=== PATIENT | female | born 1990 | race Caucasian/White ===

== ENCOUNTER 2017-10-03 11:34 | Outpatient (CLI) | payer MEDICAID, OTHER ==
[~2017-10-03 11:34] MED LIST: HYT1T PO; ONDA8TAB6 PO
== END 2017-10-03 23:59 | disposition home or self-care (01) ==
LOC: LAB 11:34
PROVIDERS: ATTEND Obstetrics & Gynecology Obstetrics
DX: Z00.00 Encounter for general adult medical examination without abnormal findings (principal); O36.80X0 Pregnancy with inconclusive fetal viability, not applicable or unspecified; Z3A.00 Weeks of gestation of pregnancy not specified
CPT/HCPCS: 36415; 84702

== ENCOUNTER 2017-10-05 12:49 | Outpatient (CLI) | payer OTHER | END 2017-10-05 23:59 | disposition home or self-care (01) | LOC: LAB 12:49 | PROVIDERS: ATTEND Obstetrics & Gynecology Obstetrics | DX: O09.10 Supervision of pregnancy with history of ectopic pregnancy, unspecified trimester (principal); Z3A.00 Weeks of gestation of pregnancy not specified; Z87.891 Personal history of nicotine dependence | CPT/HCPCS: 36415; 84702 ==

== ENCOUNTER 2017-10-09 08:23 | Outpatient (CLI) | payer OTHER | END 2017-10-09 23:59 | disposition home or self-care (01) | LOC: LAB 08:23 | PROVIDERS: ATTEND Obstetrics & Gynecology Obstetrics | DX: O09.10 Supervision of pregnancy with history of ectopic pregnancy, unspecified trimester (principal); Z3A.00 Weeks of gestation of pregnancy not specified; Z87.891 Personal history of nicotine dependence | CPT/HCPCS: 36415; 84702 ==

== ENCOUNTER 2021-07-25 19:52 | Emergency (ER) | payer MEDICAID, OTHER ==
[~2021-07-25] VITALS: Ht 162.6 cm; Wt 56.8 kg
[2021-07-25 20:30] LABS: BASOPHILS % (AUTO) 0.4 % (0-1); EOSINOPHILS % (AUTO) 0.5 % (0-6); HEMATOCRIT 33.1 % (35.0-45.0); LYMPHOCYTES # (AUTO) 1.2 X10'3 (1.1-4.8); LYMPHOCYTES % (AUTO) 13.8 % (21-51); MEAN CORPUSCULAR HEMOGLOBIN 30.8 PG (27.0-31.0); MEAN CORPUSCULAR HGB CONC 33.1 g/dL (33.0-36.5); MEAN CORPUSCULAR VOLUME 93.1 FL (78-98); MEAN PLATELET VOLUME 8.8 FL (7.4-10.4); MONOCYTES % (AUTO) 11.4 % (2-12); NEUTROPHILS # (AUTO) 6.4 X10'3 (1.8-7.7); NEUTROPHILS % (AUTO) 73.9 % (42-75); PLATELET COUNT 304 X10'3 (140-440); RED BLOOD COUNT 3.56 X10'6 (4.20-5.60); RED CELL DISTRIBUTION WIDTH 16.8 % (11.5-14.5); WHITE BLOOD COUNT 8.7 X10'3 (4.5-11.0)
[2021-07-25 20:40] LABS: ALANINE AMINOTRANSFERASE 81 U/L (12-78); ALBUMIN 2.8 G/DL (3.4-5.0); ALBUMIN/GLOBULIN RATIO 0.7 (1.1-1.5); ALKALINE PHOSPHATASE 223 IU/L (46-116); ANION GAP 9 (8-16); ASPARTATE AMINO TRANSFERASE 165 U/L (10-37); BILIRUBIN,TOTAL 1.8 MG/DL (0.1-1.0); BLOOD UREA NITROGEN 3 MG/DL (7-18); BUN/CREATININE RATIO 6.4 (6.6-38.0); CALCIUM 8.2 MG/DL (8.5-10.1); CHLORIDE 97 MMOL/L (99-107); CREATININE 0.47 MG/DL (0.40-0.90); GLUCOSE 98 MG/DL (70-104); LIPASE 57 U/L (73-393); POTASSIUM 4.1 MMOL/L (3.5-5.1); SODIUM 129 MMOL/L (135-145); TOTAL CARBON DIOXIDE 22.8 MMOL/L (24-32); TOTAL PROTEIN 6.6 G/DL (6.4-8.2); eGFR > 90 ML/MIN
[2021-07-25 21:33] LABS: URINE HCG NEGATIVE (NEG)
[2021-07-25 21:42] LABS: CLARITY,URINE SLIGHTLY CLOUDY (Clear); GLUCOSE, URINE NEGATIVE (Neg); KETONES,URINE NEGATIVE (Neg); LEUKOCYTE ESTERASE ,URINE TRACE (Neg); NITRITES, URINE POSITIVE (Neg); OCCULT BLOOD,URINE NEGATIVE (Neg); PROTEIN,URINE NEGATIVE (Neg)
[2021-07-25 21:49] LABS: COLOR,URINE AMBER (Yellow); UA COLLECTION TYPE CLN CATCH MIDSTREAM
[2021-07-25 21:53] LABS: BACTERIA,URINE 4+ /HPF (Neg); MUCUS STRANDS NONE SEEN /LPF (Neg); RBC,URINE NONE SEEN /HPF (0-2); SQUAMOUS EPITHELIAL CELL,UR FEW /LPF (FEW); WBC,URINE 20-30 /HPF (0-4)
[2021-07-25] MEDS ORDERED: HYDROmorphone 1 mg/ml syringe IV ONE (22:20)
[2021-07-25] MEDS ORDERED: iohexol 300mg/ml 100ml inj. ONE (22:27)
[2021-07-25] MEDS ORDERED: HYDROmorphone 1 mg/ml syringe IM ONE (22:35)
[2021-07-26] MEDS ORDERED: ketorolac trometh. 30mg/ml inj. IV ONE
[2021-07-26] MEDS ORDERED: morphine 4 MG/ML inj SYRINge IV ONE (05:10)
--- NOTE | 2021-07-26 05:20 | NUR ---
pt. axox4, has been laying supine and on her phone. no distress noted. even and unlabored respirations. waiting on ct results.
--- NOTE | 2021-07-26 06:04 | NUR ---
switched to smaller cuff for more accurate reading of bp. bp with small adult cuff is 105/62.
[2021-07-26] MEDS ORDERED: CEPH250T PO (06:10)
[2021-07-26] MEDS ORDERED: cephalexin 250mg capsule PO ONE (06:10)
--- NOTE | 2021-07-26 06:30 | NUR ---
first contact with pt, found resting in bed. pt is awating CT results since 29. pt made aware that she is waiting for this, md and ct aware of delayed results. pt reports abd pain after pain meds. no distress.
--- NOTE | 2021-07-26 06:42 | NUR ---
called [facility] regarding CT results. informed that MD is currently reading CT and it should be resulted soon.
[2021-07-26 06:59] VITALS: BP 95/64
== END 2021-07-26 07:15 | disposition home or self-care (01) ==
LOC: ER 19:53
DX: N39.0 Urinary tract infection, site not specified (principal); R18.8 Other ascites; R10.84 Generalized abdominal pain; F41.9 Anxiety disorder, unspecified; Z88.5 Allergy status to narcotic agent; Z79.899 Other long term (current) drug therapy
CPT/HCPCS: 36415; 71045; 74177; 80053; 81001; 81025; 83690; 84484; 85025; 87077; 87088; 87186; 93005; 96372; 96374; 96375; 99285; J1170; J1885; J2270; J3490; Q9967

== ENCOUNTER 2021-07-27 12:49 | Outpatient (CLI) | payer MEDICAID ==
[~2021-07-27 12:49] MED LIST changes: +CEPH250T PO
[2021-07-27 14:51] LABS: ALANINE AMINOTRANSFERASE 74 U/L (12-78); ALBUMIN 2.9 G/DL (3.4-5.0); ALBUMIN/GLOBULIN RATIO 0.7 (1.1-1.5); ALKALINE PHOSPHATASE 228 IU/L (46-116); AMYLASE 26 U/L (25-115); ANION GAP 10 (8-16); ASPARTATE AMINO TRANSFERASE 162 U/L (10-37); BILIRUBIN,TOTAL 2.9 MG/DL (0.1-1.0); BLOOD UREA NITROGEN 5 MG/DL (7-18); C-REACTIVE PROTEIN 2.06 MG/DL (0.0-0.5); CALCIUM 8.6 MG/DL (8.5-10.1); CHLORIDE 98 MMOL/L (99-107); FERRITIN 87 NG/ML (8-252); GLUCOSE 80 MG/DL (70-104); LIPASE < 50 U/L (73-393); MAGNESIUM 1.9 MG/DL (1.5-2.4); POTASSIUM 4.4 MMOL/L (3.5-5.1); SODIUM 130 MMOL/L (135-145); eGFR > 90 ML/MIN
[2021-07-27 15:13] LABS: % IRON SATURATION 37 % (11-46); IRON 91 UG/DL (49-151); TOTAL IRON BINDING CAPACITY 249 UG/DL (259-388)
[2021-07-29 12:25] LABS: TRANSFERRIN 211 mg/dL (192-364)
[2021-07-29 12:26] LABS: GAMMA GLUTAMLY TRANSPEPTIDASE 952 IU/L (0-60)
[2021-07-29 17:41] LABS: HBSAG SCREEN Negative (Negative); HEP A AB, IGM Negative (Negative)
== END 2021-07-27 23:59 | disposition home or self-care (01) ==
LOC: LAB 12:49
PROVIDERS: ATTEND Family Medicine
DX: R17 Unspecified jaundice (principal); K21.9 Gastro-esophageal reflux disease without esophagitis; R79.89 Other specified abnormal findings of blood chemistry; E55.9 Vitamin D deficiency, unspecified; R60.0 Localized edema; F17.210 Nicotine dependence, cigarettes, uncomplicated; Z72.89 Other problems related to lifestyle
CPT/HCPCS: 36415; 80053; 80074; 82150; 82175; 82306; 82525; 82570; 82607; 82728; 82746; 82977; 83540; 83550; 83655; 83690; 83735; 83825; 84466; 86140

== ENCOUNTER 2021-07-27 20:43 | Emergency (ER) | payer MEDICAID ==
[~2021-07-27] VITALS: Ht 162.6 cm; Wt 60.7 kg
[2021-07-27] MEDS ORDERED: ondansetron/PF 4mg/2ml inj IV ONE (22:45)
[2021-07-27] MEDS ORDERED: LIDOcaine 1% W/epiNEPHrine 1:100,000 20ml vial SQ ONE (22:45)
[2021-07-27] MEDS ORDERED: morphine 4 MG/ML inj SYRINge IV PRN (22:45)
[2021-07-27] MEDS ORDERED: ketorolac trometh. 30mg/ml inj. IV ONE (23:25)
[2021-07-28 00:08] VITALS: BP 104/63
[2021-07-28 00:14] LABS: ALBUMIN,BODY FLUID 1.8 G/DL; LDH,BODY FLUID 96 U/L; TOTAL PROTEIN,BODY FLUID 3.6 G/DL
[2021-07-28 00:44] LABS: BFAPPEAR CLEAR; BFCOLOR YELLOW
[2021-07-28 00:45] LABS: BF RBC COUNT 425 /CU MM; BF WBC COUNT 385 /CU MM (0-1000); BFVOLUME 14 ML
[2021-07-28 00:47] LABS: BF MESOTHELIAL CELLS FEW; LYMPHOCYTES,BODY FLUID 60 %; MONOCYTES,BODY FLUID 30 %; NEUTROPHILS,BODY FLUID 10 %; OTHER CELLS,BODY FLUID MACROPHAGES
[2021-07-28 00:53] LABS: BODY FLUID PH (NON-PLEURAL) 7.5
[2021-07-28 01:03] LABS: ALANINE AMINOTRANSFERASE 74 U/L (12-78); ALBUMIN 3.1 G/DL (3.4-5.0); ALBUMIN/GLOBULIN RATIO 0.7 (1.1-1.5); ALKALINE PHOSPHATASE 240 IU/L (46-116); ANION GAP 10 (8-16); ASPARTATE AMINO TRANSFERASE 158 U/L (10-37); BILIRUBIN,TOTAL 2.3 MG/DL (0.1-1.0); BLOOD UREA NITROGEN 5 MG/DL (7-18); BUN/CREATININE RATIO 10.2 (6.6-38.0); CALCIUM 8.9 MG/DL (8.5-10.1); CHLORIDE 95 MMOL/L (99-107); CREATININE 0.49 MG/DL (0.40-0.90); GLUCOSE 67 MG/DL (70-104); POTASSIUM 4.7 MMOL/L (3.5-5.1); SODIUM 127 MMOL/L (135-145); TOTAL PROTEIN 7.4 G/DL (6.4-8.2); eGFR > 90 ML/MIN
[2021-07-28 01:05] LABS: CLARITY,URINE CLEAR (Clear); COLOR,URINE YELLOW (Yellow); GLUCOSE, URINE NEGATIVE (Neg); KETONES,URINE NEGATIVE (Neg); LEUKOCYTE ESTERASE ,URINE NEGATIVE (Neg); NITRITES, URINE NEGATIVE (Neg); OCCULT BLOOD,URINE NEGATIVE (Neg); PH,URINE 6.5 (4.8-8.0); PROTEIN,URINE NEGATIVE (Neg)
[2021-07-28 01:06] LABS: BASOPHILS # (AUTO) 0.1 X10'3 (0-0.2); BASOPHILS % (AUTO) 0.6 % (0-1); EOSINOPHILS # (AUTO) 0.1 X10'3 (0-0.9); EOSINOPHILS % (AUTO) 0.8 % (0-6); HEMOGLOBIN 12.1 g/dl (12.0-16.0); LYMPHOCYTES # (AUTO) 1.8 X10'3 (1.1-4.8); LYMPHOCYTES % (AUTO) 18.5 % (21-51); MEAN CORPUSCULAR HEMOGLOBIN 31.1 PG (27.0-31.0); MEAN CORPUSCULAR HGB CONC 32.8 g/dL (33.0-36.5); MEAN CORPUSCULAR VOLUME 94.9 FL (78-98); MEAN PLATELET VOLUME 9.1 FL (7.4-10.4); MONOCYTES # (AUTO) 0.9 X10'3 (0-0.9); MONOCYTES % (AUTO) 9.4 % (2-12); NEUTROPHILS % (AUTO) 70.7 % (42-75); PLATELET COUNT 370 X10'3 (140-440); RED CELL DISTRIBUTION WIDTH 16.6 % (11.5-14.5); WHITE BLOOD COUNT 9.9 X10'3 (4.5-11.0)
[2021-07-28 01:10] LABS: URINE HCG NEGATIVE (NEG)
[2021-07-28 01:24] LABS: UA COLLECTION TYPE CLN CATCH MIDSTREAM
== END 2021-07-28 00:09 | disposition home or self-care (01) ==
LOC: ER 20:43
DX: R10.84 Generalized abdominal pain (principal); R18.8 Other ascites; F12.90 Cannabis use, unspecified, uncomplicated; Z72.89 Other problems related to lifestyle; Z98.890 Other specified postprocedural states; Z90.49 Acquired absence of other specified parts of digestive tract; Z88.8 Allergy status to other drugs, medicaments and biological substances; Z79.2 Long term (current) use of antibiotics; Z79.899 Other long term (current) drug therapy
CPT/HCPCS: 36415; 49083; 80053; 81003; 81025; 82042; 83615; 83986; 84157; 85025; 89051; 96374; 96375; 99285; J1885; J2270; J2405; Z7610; 99284; A6449

== ENCOUNTER 2021-07-30 10:11 | Emergency (ER) | payer MEDICAID ==
[~2021-07-30] VITALS: Ht 162.6 cm; Wt 54.5 kg
[2021-07-30] MEDS ORDERED: albumin (Human) 5% 250ml 250 ML IV ONE (17:25)
[2021-07-30] MEDS ORDERED: ketorolac trometh. 30mg/ml inj. IV ONE (17:25)
[2021-07-30] MEDS: morphine 2 MG/ML inj. syringe IV PRN ×2 (18:12→21:56)
[2021-07-30 18:31] LABS: BASOPHILS # (AUTO) 0.1 X10'3 (0-0.2); EOSINOPHILS % (AUTO) 0.2 % (0-6); HEMATOCRIT 35.6 % (35.0-45.0); HEMOGLOBIN 11.9 g/dl (12.0-16.0); LYMPHOCYTES # (AUTO) 1.5 X10'3 (1.1-4.8); LYMPHOCYTES % (AUTO) 12.6 % (21-51); MEAN CORPUSCULAR HEMOGLOBIN 31.8 PG (27.0-31.0); MEAN CORPUSCULAR HGB CONC 33.4 g/dL (33.0-36.5); MEAN CORPUSCULAR VOLUME 95.2 FL (78-98); MEAN PLATELET VOLUME 8.6 FL (7.4-10.4); MONOCYTES % (AUTO) 8.2 % (2-12); NEUTROPHILS # (AUTO) 9.4 X10'3 (1.8-7.7); PLATELET COUNT 336 X10'3 (140-440); RED BLOOD COUNT 3.74 X10'6 (4.20-5.60); RED CELL DISTRIBUTION WIDTH 16.3 % (11.5-14.5)
[2021-07-30] MEDS ORDERED: LIDOcaine 1% W/epiNEPHrine 1:100,000 20ml vial SQ ONE ×2 (18:35→22:10)
[2021-07-30 18:41] LABS: ALANINE AMINOTRANSFERASE 58 U/L (12-78); ALBUMIN 2.6 G/DL (3.4-5.0); ALBUMIN/GLOBULIN RATIO 0.7 (1.1-1.5); ALKALINE PHOSPHATASE 195 IU/L (46-116); ANION GAP 11 (8-16); ASPARTATE AMINO TRANSFERASE 139 U/L (10-37); BILIRUBIN,TOTAL 2.1 MG/DL (0.1-1.0); BLOOD UREA NITROGEN 4 MG/DL (7-18); BUN/CREATININE RATIO 7.8 (6.6-38.0); CALCIUM 8.2 MG/DL (8.5-10.1); CHLORIDE 95 MMOL/L (99-107); CREATININE 0.51 MG/DL (0.40-0.90); GLUCOSE 97 MG/DL (70-104); SODIUM 130 MMOL/L (135-145); TOTAL CARBON DIOXIDE 24.3 MMOL/L (24-32); TOTAL PROTEIN 6.3 G/DL (6.4-8.2); eGFR > 90 ML/MIN
[2021-07-30 18:43] LABS: POTASSIUM 3.8 MMOL/L (3.5-5.1)
--- NOTE | 2021-07-30 19:32 | NUR ---
paracentesis in progress. nicola clemente at bedside
[2021-07-30] MEDS ORDERED: morphine 4 MG/ML inj SYRINge IV ONE (19:35)
[2021-07-30] MEDS ORDERED: LORazepam 2 mg/ml vial IV ONE (19:40)
--- NOTE | 2021-07-30 19:53 | NUR ---
FAILED PARACENTESIS ATTEMPT. MD WILL ATTEMPT AGAIN SHORTLY
--- NOTE | 2021-07-30 21:19 | NUR ---
STILL WAITING ON MARTA ORNELAS TO PERFORM SECOND PARACENTESIS ATTEMPT. PT IS RESTING COMFORTABLY IN BED.
--- NOTE | 2021-07-30 21:31 | NUR ---
MARTA ORNELAS AWARE OF PT LOW BP. 90/60. NO NEW ORDERS AT THIS TIME
--- NOTE | 2021-07-30 21:34 | NUR ---
SOLANGE TINAJERO [phone] Addendum: 07/30/21 at 2136 by ROSA RN SPOKE WITH TO GIVE UPDATE. PATIENT OKAYED UPDATE
--- NOTE | 2021-07-30 22:29 | NUR ---
LC ORNELAS AT BEDSIDE PERFORMING PARACENTESIS
--- NOTE | 2021-07-30 23:42 | NUR ---
AWARE OF 90/51 BP. NO NEW ORDERS AT THIS TIME
[2021-07-31 00:20] VITALS: BP 92/60
== END 2021-07-31 00:22 | disposition home or self-care (01) ==
LOC: ER 10:11
DX: R18.8 Other ascites (principal); K72.10 Chronic hepatic failure without coma; R10.84 Generalized abdominal pain; F41.9 Anxiety disorder, unspecified; F17.200 Nicotine dependence, unspecified, uncomplicated; F12.90 Cannabis use, unspecified, uncomplicated; Z72.89 Other problems related to lifestyle; Z88.5 Allergy status to narcotic agent; Z79.899 Other long term (current) drug therapy
CPT/HCPCS: 36415; 49083; 76705; 80053; 85025; 96365; 96375; 96376; 99285; J1885; J2060; J2270; J7030; P9045; Z7610

== ENCOUNTER 2021-08-09 09:42 | Emergency (ER) | payer MEDICAID ==
[~2021-08-09] VITALS: Ht 162.6 cm; Wt 57.3 kg
[~2021-08-09 09:42] MED LIST changes: -CEPH250T PO
[2021-08-09 09:45] VITALS: BP 107/66
== END 2021-08-09 11:10 | disposition home or self-care (01) ==
LOC: ER 09:43
DX: R10.84 Generalized abdominal pain (principal); F41.9 Anxiety disorder, unspecified; F12.90 Cannabis use, unspecified, uncomplicated; Z90.89 Acquired absence of other organs; Z79.899 Other long term (current) drug therapy; Z72.89 Other problems related to lifestyle; Z88.5 Allergy status to narcotic agent
CPT/HCPCS: 99282

== ENCOUNTER 2021-08-12 07:48 | Day surgery (SDC) | payer MEDICAID ==
[~2021-08-12] VITALS: Ht 162.6 cm; Wt 59.0 kg
[2021-08-12] MEDS ORDERED: LIDOcaine 1%/PF 5ML 10 MG/ML VIAL SQ ONE (07:55)
[2021-08-12 08:00] VITALS: BP 102/56
[2021-08-12] MEDS ORDERED: albumin 25% 100mL bottle x 1 IV PRN (08:05)
[2021-08-12] MEDS ORDERED: FURO40TA4 PO (08:22)
[2021-08-12] MEDS ORDERED: LACT10SO3 PO (08:22)
[2021-08-12] MEDS ORDERED: TRAM50TA2 PO (08:22)
[2021-08-12] MEDS ORDERED: ALPR1TAB2 PO (08:22)
[2021-08-12] MEDS ORDERED: HYDR4TAB45 PO (08:22)
[2021-08-12] MEDS ORDERED: SUMA50TA PO (08:22)
[2021-08-12] MEDS ORDERED: DEXL60CA3 PO (08:22)
[2021-08-12] MEDS ORDERED: MULT400T5 PO (08:22)
[2021-08-12] MEDS ORDERED: POLY17PO59 PO (08:22)
[2021-08-12] MEDS ORDERED: SPIR50TA5 PO (08:22)
[2021-08-12] MEDS ORDERED: ondansetron 4mg rapidly disintigrating tab PO ONE (09:55)
--- NOTE | 2021-08-12 10:00 | NUR ---
Patient very upset and anxious. She is asking for pain medication and nausea medication. She normally takes dilaudid at home and is requesting dilaudid or morphine. Spoke with Dr. Goldstein and he states he doesn't order narcotics but he did order Zofran 4mg ODT. Offered the patient Zofran and she refused and got upset because she says the reason she's nauseated is from the pain so Zofran "won't work". Patient starts crying and is very upset. I reassured patient and sat with her for a while to calm her down.
[2021-08-12 10:15] VITALS: BP 107/65
[2021-08-12 10:30] VITALS: BP 97/59
[2021-08-12 10:45] VITALS: BP 93/51
--- NOTE | 2021-08-12 10:45 | NUR ---
Patient feeling much better and getting some relief from the paracentesis. She is calmed down and less anxious. She stopped draining for a bit and I readjusted her but she still wasn't draining. About 5 mins later, she started draining again. Patient tolerating procedure well.
[2021-08-12 10:55] VITALS: BP_SYST 90; BP_SYST 93; BP_DIAS 51; BP_DIAS 52
[2021-08-12 11:10] VITALS: BP 97/51
== END 2021-08-12 11:21 | disposition home or self-care (01) ==
LOC: SSTAY O 07:48
PROVIDERS: ATTEND Radiology Vascular & Interventional Radiology
DX: R18.8 Other ascites (principal); I50.9 Heart failure, unspecified; Z88.6 Allergy status to analgesic agent; Z79.899 Other long term (current) drug therapy; Z98.890 Other specified postprocedural states
CPT/HCPCS: 49083; A6258; J3490; A6402

== ENCOUNTER 2021-09-01 06:39 | Day surgery (SDC) | payer MEDICAID ==
[~2021-09-01] VITALS: Ht 162.6 cm; Wt 63.5 kg
[~2021-09-01 06:39] MED LIST changes: +ALPR1TAB2 PO; +FURO20TA4 PO; +HYDR4TAB45 PO; -HYT1T PO; +LACT10SO7 PO; +MORP-92; +MULT400T5 PO; +ONDA4TAB12; -ONDA8TAB6 PO; +PANT40TA54 PO; +POTA10CA44 PO; +SPIR50TA5 PO
[2021-09-01] MEDS ORDERED: LIDOcaine 1%/PF 5ML 10 MG/ML VIAL SQ ONE (06:50)
[2021-09-01] MEDS ORDERED: DEXL60CA3 PO (06:59)
[2021-09-01] MEDS ORDERED: TRAM50TA2 PO (06:59)
[2021-09-01] MEDS ORDERED: ALPR0.5T9 PO (06:59)
[2021-09-01 07:00] VITALS: BP 113/65
[2021-09-01] MEDS ORDERED: albumin 25% 100mL bottle x 1 IV PRN (07:10)
[2021-09-01 09:38] VITALS: BP 104/67
[2021-09-01 09:53] VITALS: BP 93/72
[2021-09-01 10:08] VITALS: BP 101/63
[2021-09-01 10:23] VITALS: BP 106/61
[2021-09-01 10:38] VITALS: BP 106/76
== END 2021-09-01 10:50 | disposition home or self-care (01) ==
LOC: SSTAY O 06:39
PROVIDERS: ATTEND Preventive Medicine Aerospace Medicine
DX: K70.31 Alcoholic cirrhosis of liver with ascites (principal); Z88.6 Allergy status to analgesic agent; Z79.899 Other long term (current) drug therapy; Z82.49 Family history of ischemic heart disease and other diseases of the circulatory system; Z98.890 Other specified postprocedural states
CPT/HCPCS: 49083; J3490; P9047; A6258; A6449

== ENCOUNTER 2021-09-11 13:32 | Emergency (ER) | payer MEDICAID ==
[~2021-09-11] VITALS: Ht 162.6 cm; Wt 57.3 kg
[~2021-09-11 13:32] MED LIST changes: +ALPR0.5T9 PO; -ALPR1TAB2 PO; +DEXL60CA3 PO; +LACT10SO3 PO; -LACT10SO7 PO
[2021-09-11 15:14] VITALS: BP 99/49
== END 2021-09-11 15:15 | disposition home or self-care (01) ==
LOC: ER 13:33
DX: R18.8 Other ascites (principal); F12.90 Cannabis use, unspecified, uncomplicated; Z88.5 Allergy status to narcotic agent
CPT/HCPCS: 99281

== ENCOUNTER 2021-09-16 07:29 | Day surgery (SDC) | payer MEDICAID ==
[~2021-09-16] VITALS: Ht 162.6 cm; Wt 53.7 kg
[2021-09-16] VITALS (10 sets, daily range): BP systolic 86–99; BP diastolic 46–69
[2021-09-16] MEDS ORDERED: albumin 25% 100mL bottle x 1 IV PRN (08:00)
[2021-09-16] MEDS ORDERED: SPIR100T5 PO (08:07)
[2021-09-16] MEDS ORDERED: FURO80TA3 PO (08:07)
[2021-09-16] MEDS ORDERED: LIDOcaine 1%/PF 5ML 10 MG/ML VIAL SQ ONE (08:10)
== END 2021-09-16 12:50 | disposition home or self-care (01) ==
LOC: SSTAY O 07:29
PROVIDERS: ATTEND Radiology Vascular & Interventional Radiology
DX: R18.8 Other ascites (principal); K74.60 Unspecified cirrhosis of liver; G89.4 Chronic pain syndrome; K21.9 Gastro-esophageal reflux disease without esophagitis; Z87.442 Personal history of urinary calculi; Z87.440 Personal history of urinary (tract) infections; Z98.890 Other specified postprocedural states; Z88.6 Allergy status to analgesic agent; Z79.899 Other long term (current) drug therapy; F12.90 Cannabis use, unspecified, uncomplicated
CPT/HCPCS: 49083; J3490; P9047; A6258; A6449; J7030

== ENCOUNTER 2021-09-16 07:38 | Outpatient (CLI) | payer MEDICAID ==
[2021-09-16] MEDS ORDERED: FURO80TA3 PO (08:07)
[2021-09-16] MEDS ORDERED: SPIR100T5 PO (08:07)
[2021-09-16 12:46] LABS: BASOPHILS % (AUTO) 0.4 % (0-1); EOSINOPHILS % (AUTO) 0.6 % (0-6); HEMATOCRIT 33.4 % (35.0-45.0); HEMOGLOBIN 11.2 g/dl (12.0-16.0); LYMPHOCYTES # (AUTO) 1.8 X10'3 (1.1-4.8); LYMPHOCYTES % (AUTO) 26.7 % (21-51); MEAN CORPUSCULAR HEMOGLOBIN 29.2 PG (27.0-31.0); MEAN CORPUSCULAR HGB CONC 33.5 g/dL (33.0-36.5); MEAN CORPUSCULAR VOLUME 87.4 FL (78-98); MEAN PLATELET VOLUME 6.9 FL (7.4-10.4); MONOCYTES # (AUTO) 0.7 X10'3 (0-0.9); MONOCYTES % (AUTO) 9.8 % (2-12); NEUTROPHILS # (AUTO) 4.2 X10'3 (1.8-7.7); NEUTROPHILS % (AUTO) 62.5 % (42-75); PLATELET COUNT 278 X10'3 (140-440); RED BLOOD COUNT 3.82 X10'6 (4.20-5.60); RED CELL DISTRIBUTION WIDTH 16.3 % (11.5-14.5); WHITE BLOOD COUNT 6.7 X10'3 (4.5-11.0)
[2021-09-16 13:31] LABS: ALANINE AMINOTRANSFERASE 21 U/L (12-78); ALBUMIN 3.3 G/DL (3.4-5.0); ALBUMIN/GLOBULIN RATIO 1.1 (1.1-1.5); ALKALINE PHOSPHATASE 99 IU/L (46-116); AMYLASE 31 U/L (25-115); ANION GAP 9 (8-16); ASPARTATE AMINO TRANSFERASE 26 U/L (10-37); BILIRUBIN,TOTAL 0.5 MG/DL (0.1-1.0); BLOOD UREA NITROGEN 5 MG/DL (7-18); BUN/CREATININE RATIO 6.7 (6.6-38.0); C-REACTIVE PROTEIN 0.46 MG/DL (0.0-0.5); CALCIUM 8.3 MG/DL (8.5-10.1); CHLORIDE 93 MMOL/L (99-107); CREATININE 0.75 MG/DL (0.40-0.90); FERRITIN 35 NG/ML (8-252); GLUCOSE 56 MG/DL (70-104); LIPASE 50 U/L (73-393); MAGNESIUM 1.8 MG/DL (1.5-2.4); POTASSIUM 4.4 MMOL/L (3.5-5.1); SODIUM 127 MMOL/L (135-145); TOTAL PROTEIN 6.2 G/DL (6.4-8.2); eGFR 90 ML/MIN
[2021-09-16 13:42] LABS: % IRON SATURATION 11 % (11-46); IRON 25 UG/DL (49-151); TOTAL IRON BINDING CAPACITY 229 UG/DL (259-388)
[2021-09-17 13:17] LABS: GAMMA GLUTAMLY TRANSPEPTIDASE 139 IU/L (0-60); HBSAG SCREEN Negative (Negative); HEP A AB, IGM Negative (Negative); TRANSFERRIN 235 mg/dL (192-364)
[2021-09-29 12:49] LABS: HEPATITIS C ANTIBODY Negative
== END 2021-09-16 23:59 | disposition home or self-care (01) ==
LOC: LAB 07:38
PROVIDERS: ATTEND Family Medicine
DX: E55.9 Vitamin D deficiency, unspecified (principal); R17 Unspecified jaundice; K21.9 Gastro-esophageal reflux disease without esophagitis; R79.89 Other specified abnormal findings of blood chemistry; R60.0 Localized edema; F17.210 Nicotine dependence, cigarettes, uncomplicated; Z72.89 Other problems related to lifestyle; Z86.2 Personal history of diseases of the blood and blood-forming organs and certain disorders involving the immune mechanism
CPT/HCPCS: 36415; 80053; 80074; 81256; 82140; 82150; 82175; 82306; 82525; 82570; 82607; 82728; 82746; 82977; 83540; 83550; 83655; 83690; 83735; 83825; 84466; 85025; 85651; 86140

== ENCOUNTER 2021-09-24 07:32 | Day surgery (SDC) | payer MEDICAID ==
[2021-09-24] VITALS (11 sets, daily range): BP systolic 91–118; BP diastolic 35–63
[~2021-09-24] VITALS: Ht 162.6 cm; Wt 51.9 kg
[~2021-09-24 07:32] MED LIST changes: -FURO20TA4 PO; +FURO80TA3 PO; +SPIR100T5 PO; -SPIR50TA5 PO
[2021-09-24] MEDS ORDERED: albumin 25% 100mL bottle x 1 IV PRN (07:50)
[2021-09-24] MEDS ORDERED: LIDOcaine 1%/PF 5ML 10 MG/ML VIAL SQ ONE (08:00)
== END 2021-09-24 12:00 | disposition home or self-care (01) ==
LOC: SSTAY O 07:32
PROVIDERS: ATTEND Radiology Vascular & Interventional Radiology
DX: R18.8 Other ascites (principal); K74.60 Unspecified cirrhosis of liver; Q44.7 Other congenital malformations of liver; Q43.3 Congenital malformations of intestinal fixation; G89.4 Chronic pain syndrome; K21.9 Gastro-esophageal reflux disease without esophagitis; E03.9 Hypothyroidism, unspecified; F41.9 Anxiety disorder, unspecified; Z90.49 Acquired absence of other specified parts of digestive tract; Z88.6 Allergy status to analgesic agent; Z82.49 Family history of ischemic heart disease and other diseases of the circulatory system; Z79.899 Other long term (current) drug therapy; Z98.890 Other specified postprocedural states
CPT/HCPCS: 49083; J3490; P9047; A6258

== ENCOUNTER 2021-10-04 08:33 | Day surgery (SDC) | payer MEDICAID ==
[~2021-10-04] VITALS: Ht 162.6 cm; Wt 54.7 kg
[~2021-10-04 08:33] MED LIST changes: -PANT40TA54 PO
[2021-10-04] MEDS ORDERED: LIDOcaine 1% 30ml preserv. free vial SQ STA (08:40)
[2021-10-04 08:51] VITALS: BP 111/60
[2021-10-04] MEDS ORDERED: albumin (human) 25% 100ml IV 100 ML IV ONE (08:55)
[2021-10-04] MEDS ORDERED: CHOL100025 PO (09:04)
[2021-10-04 09:51] VITALS: BP 108/69
[2021-10-04 10:06] VITALS: BP 95/59
[2021-10-04 10:44] VITALS: BP 103/55
[2021-10-04 10:57] VITALS: BP 100/51
[2021-10-04 11:46] VITALS: BP 100/46
== END 2021-10-04 12:14 | disposition home or self-care (01) ==
LOC: SSTAY O 08:33
PROVIDERS: ATTEND Radiology Vascular & Interventional Radiology
DX: R18.8 Other ascites (principal); K74.60 Unspecified cirrhosis of liver; G89.4 Chronic pain syndrome; Z90.49 Acquired absence of other specified parts of digestive tract; Z98.890 Other specified postprocedural states; K21.9 Gastro-esophageal reflux disease without esophagitis; Z87.440 Personal history of urinary (tract) infections; E03.9 Hypothyroidism, unspecified; F41.9 Anxiety disorder, unspecified; Z79.899 Other long term (current) drug therapy
CPT/HCPCS: 49083; J3490; P9047; A6258; A6449

== ENCOUNTER 2021-10-12 07:32 | Day surgery (SDC) | payer MEDICAID ==
[~2021-10-12] VITALS: Ht 162.6 cm; Wt 49.8 kg
[2021-10-12] VITALS (8 sets, daily range): BP systolic 90–134; BP diastolic 48–67
[~2021-10-12 07:32] MED LIST changes: +CHOL100025 PO; -MULT400T5 PO
[2021-10-12] MEDS ORDERED: LIDOcaine 1%/PF 5ML 10 MG/ML VIAL SQ ONE (07:45)
[2021-10-12] MEDS ORDERED: albumin 25% 100mL bottle x 1 IV PRN (07:50)
== END 2021-10-12 10:15 | disposition home or self-care (01) ==
LOC: SSTAY O 07:32
PROVIDERS: ATTEND Radiology Diagnostic Radiology
DX: R18.8 Other ascites (principal); K74.60 Unspecified cirrhosis of liver; G89.4 Chronic pain syndrome; K21.9 Gastro-esophageal reflux disease without esophagitis; E03.9 Hypothyroidism, unspecified; F41.9 Anxiety disorder, unspecified; Q44.7 Other congenital malformations of liver; Z90.49 Acquired absence of other specified parts of digestive tract; Z98.890 Other specified postprocedural states; Z87.440 Personal history of urinary (tract) infections; Z79.899 Other long term (current) drug therapy
CPT/HCPCS: 49083; J3490; P9047; A6258

== ENCOUNTER 2021-10-21 07:44 | Day surgery (SDC) | payer MEDICAID ==
[~2021-10-21] VITALS: Ht 162.6 cm; Wt 47.8 kg
[2021-10-21] MEDS ORDERED: albumin 25% 100mL bottle x 1 IV PRN (08:05)
[2021-10-21] MEDS ORDERED: LIDOcaine 1% 30ml preserv. free vial SQ STA (08:07)
[2021-10-21 08:09] VITALS: BP 108/64
--- NOTE | 2021-10-21 09:40 | NUR ---
Limited US only, not enough fluid to proceed per Rosendo Olivarez. Procedure canceled.
== END 2021-10-21 09:45 | disposition home or self-care (01) ==
LOC: SSTAY O 07:44
PROVIDERS: ATTEND Radiology Vascular & Interventional Radiology
DX: R18.8 Other ascites (principal); K74.60 Unspecified cirrhosis of liver; Q43.3 Congenital malformations of intestinal fixation; G89.4 Chronic pain syndrome; K21.9 Gastro-esophageal reflux disease without esophagitis; Z87.440 Personal history of urinary (tract) infections; F41.9 Anxiety disorder, unspecified; E03.9 Hypothyroidism, unspecified; Z90.49 Acquired absence of other specified parts of digestive tract; Z98.890 Other specified postprocedural states; Z79.899 Other long term (current) drug therapy
CPT/HCPCS: 76705; A6258; A6402

== ENCOUNTER 2021-10-26 06:34 | Day surgery (SDC) | payer MEDICAID ==
[~2021-10-26] VITALS: Ht 162.6 cm; Wt 49.6 kg
[2021-10-26] VITALS (7 sets, daily range): BP systolic 87–120; BP diastolic 55–68
[2021-10-26] MEDS ORDERED: LIDOcaine 1%/PF 5ML 10 MG/ML VIAL SQ ONE (06:40)
[2021-10-26] MEDS ORDERED: albumin 25% 100mL bottle x 1 IV PRN (06:50)
== END 2021-10-26 09:55 | disposition home or self-care (01) ==
LOC: SSTAY O 06:34
PROVIDERS: ATTEND Radiology Diagnostic Radiology
DX: R18.8 Other ascites (principal); K74.60 Unspecified cirrhosis of liver; K21.9 Gastro-esophageal reflux disease without esophagitis; G89.4 Chronic pain syndrome; Q43.3 Congenital malformations of intestinal fixation; Z87.440 Personal history of urinary (tract) infections; E03.9 Hypothyroidism, unspecified; Z90.49 Acquired absence of other specified parts of digestive tract; F41.9 Anxiety disorder, unspecified; Z79.899 Other long term (current) drug therapy; Z98.890 Other specified postprocedural states; Z72.89 Other problems related to lifestyle; Z88.8 Allergy status to other drugs, medicaments and biological substances; Z88.6 Allergy status to analgesic agent; Z82.49 Family history of ischemic heart disease and other diseases of the circulatory system
CPT/HCPCS: 49083; J3490; P9047; A6258; A6449

== ENCOUNTER 2021-10-26 14:53 | Outpatient (CLI) | payer MEDICAID ==
[2021-10-26 15:58] LABS: BASOPHILS % (AUTO) 0.3 % (0-1); EOSINOPHILS % (AUTO) 0.3 % (0-6); HEMATOCRIT 38.4 % (35.0-45.0); HEMOGLOBIN 12.8 g/dl (12.0-16.0); LYMPHOCYTES # (AUTO) 2.1 X10'3 (1.1-4.8); LYMPHOCYTES % (AUTO) 26.9 % (21-51); MEAN CORPUSCULAR HEMOGLOBIN 28.2 PG (27.0-31.0); MEAN CORPUSCULAR HGB CONC 33.3 g/dL (33.0-36.5); MEAN CORPUSCULAR VOLUME 84.6 FL (78-98); MEAN PLATELET VOLUME 6.3 FL (7.4-10.4); MONOCYTES # (AUTO) 0.5 X10'3 (0-0.9); MONOCYTES % (AUTO) 6.1 % (2-12); NEUTROPHILS # (AUTO) 5.2 X10'3 (1.8-7.7); NEUTROPHILS % (AUTO) 66.4 % (42-75); PLATELET COUNT 405 X10'3 (140-440); RED BLOOD COUNT 4.54 X10'6 (4.20-5.60); WHITE BLOOD COUNT 7.8 X10'3 (4.5-11.0)
[2021-10-26 16:13] LABS: % IRON SATURATION 12 % (11-46); ALANINE AMINOTRANSFERASE 24 U/L (12-78); ALBUMIN 3.8 G/DL (3.4-5.0); ALBUMIN/GLOBULIN RATIO 1.2 (1.1-1.5); ALKALINE PHOSPHATASE 118 IU/L (46-116); ANION GAP 7 (8-16); ASPARTATE AMINO TRANSFERASE 30 U/L (10-37); BILIRUBIN,TOTAL 0.4 MG/DL (0.1-1.0); BLOOD UREA NITROGEN 13 MG/DL (7-18); CALCIUM 9.3 MG/DL (8.5-10.1); CHLORIDE 89 MMOL/L (99-107); CREATININE 0.65 MG/DL (0.40-0.90); GLUCOSE 87 MG/DL (70-104); IRON 35 UG/DL (49-151); POTASSIUM 4.7 MMOL/L (3.5-5.1); SODIUM 124 MMOL/L (135-145); TOTAL CARBON DIOXIDE 28.4 MMOL/L (24-32); TOTAL IRON BINDING CAPACITY 298 UG/DL (259-388); TOTAL PROTEIN 6.9 G/DL (6.4-8.2); eGFR > 90 ML/MIN
== END 2021-10-26 23:59 | disposition home or self-care (01) ==
LOC: LAB 14:53
PROVIDERS: ATTEND Family Medicine
DX: Z00.01 Encounter for general adult medical examination with abnormal findings (principal)
CPT/HCPCS: 36415; 80053; 82140; 82306; 83540; 83550; 84590; 85025

== ENCOUNTER 2021-11-01 03:10 | Emergency (ER) | payer MEDICAID ==
[~2021-11-01] VITALS: Ht 162.6 cm; Wt 48.0 kg
[2021-11-01] MEDS ORDERED: ondansetron/PF 4mg/2ml inj IV ONE ×2 (03:25→04:20)
[2021-11-01] MEDS ORDERED: normal saline 1000ml 1,000 ML IV SCH (03:40)
[2021-11-01] MEDS ORDERED: morphine 2 MG/ML inj. syringe IV ONE ×3 (03:40→06:15)
[2021-11-01 04:00] LABS: ALANINE AMINOTRANSFERASE 31 U/L (12-78); ALBUMIN 3.2 G/DL (3.4-5.0); ALKALINE PHOSPHATASE 123 IU/L (46-116); ANION GAP 12 (8-16); ASPARTATE AMINO TRANSFERASE 41 U/L (10-37); BILIRUBIN,TOTAL 0.5 MG/DL (0.1-1.0); BLOOD UREA NITROGEN 8 MG/DL (7-18); CALCIUM 9.1 MG/DL (8.5-10.1); CHLORIDE 91 MMOL/L (99-107); GLUCOSE 135 MG/DL (70-104); LIPASE 119 U/L (73-393); POTASSIUM 3.7 MMOL/L (3.5-5.1); SODIUM 126 MMOL/L (135-145); TOTAL CARBON DIOXIDE 23.5 MMOL/L (24-32); TOTAL PROTEIN 6.5 G/DL (6.4-8.2); eGFR 83 ML/MIN
[2021-11-01 04:04] LABS: BASOPHILS # (AUTO) 0.1 X10'3 (0-0.2); BASOPHILS % (AUTO) 0.8 % (0-1); EOSINOPHILS % (AUTO) 0.1 % (0-6); HEMATOCRIT 38.4 % (35.0-45.0); LYMPHOCYTES # (AUTO) 4.1 X10'3 (1.1-4.8); LYMPHOCYTES % (AUTO) 26.4 % (21-51); MEAN CORPUSCULAR HEMOGLOBIN 28.2 PG (27.0-31.0); MEAN PLATELET VOLUME 6.9 FL (7.4-10.4); MONOCYTES % (AUTO) 6.4 % (2-12); NEUTROPHILS # (AUTO) 10.2 X10'3 (1.8-7.7); NEUTROPHILS % (AUTO) 66.3 % (42-75); PLATELET COUNT 457 X10'3 (140-440); RED BLOOD COUNT 4.62 X10'6 (4.20-5.60); RED CELL DISTRIBUTION WIDTH 18.3 % (11.5-14.5); WHITE BLOOD COUNT 15.4 X10'3 (4.5-11.0)
--- NOTE | 2021-11-01 04:24 | NUR ---
while patient laying in bed barely awake states ,"I'm nauseated and have some much pain", no pain behaviors noted cpot pain scale 0, md notified, verbal order for zofran given by provider and delivered.
--- NOTE | 2021-11-01 05:16 | NUR ---
Patient once again in and out of sleep cpot 0, complaining of pain, will continue to monitor
[2021-11-01 05:55] LABS: ETHANOL < 0.010 GM/DL (0.0-0.010)
--- NOTE | 2021-11-01 06:13 | NUR ---
radiologist being paged by treasury director due to extended time without ct read
--- NOTE | 2021-11-01 06:15 | NUR ---
provider gave verbal order for morphine and is reevaluating patient at this time cpot remains 0
[2021-11-01] MEDS ORDERED: ondansetron 4mg rapidly disintigrating tab PO ONE (08:15)
[2021-11-01] MEDS ORDERED: morphine IR (immed. release) 30mg tablet PO ONE (08:15)
[2021-11-01 09:36] VITALS: BP 111/71
== END 2021-11-01 09:39 | disposition home or self-care (01) ==
LOC: ER 03:10
DX: R10.9 Unspecified abdominal pain (principal); R11.10 Vomiting, unspecified; F17.200 Nicotine dependence, unspecified, uncomplicated; F41.9 Anxiety disorder, unspecified; Z88.6 Allergy status to analgesic agent; Z79.899 Other long term (current) drug therapy
CPT/HCPCS: 36415; 71045; 74177; 80053; 80320; 83690; 84145; 85025; 85610; 96361; 96374; 96375; 96376; 99285; J2270; J2405; J7030

== ENCOUNTER 2021-11-02 06:42 | Day surgery (SDC) | payer MEDICAID ==
[~2021-11-02] VITALS: Ht 162.6 cm; Wt 46.9 kg
[~2021-11-02 06:42] MED LIST changes: +iohexol 350MG/ML 100ml bottle IV ONE
[2021-11-02] MEDS ORDERED: albumin 25% 100mL bottle x 1 IV PRN (07:00)
[2021-11-02 07:08] VITALS: BP 106/59
[2021-11-02 08:21] VITALS: BP 140/69
[2021-11-02 08:46] VITALS: BP 94/54
[2021-11-02 09:02] VITALS: BP 97/58
[2021-11-02 09:16] VITALS: BP 98/59
== END 2021-11-02 09:30 | disposition home or self-care (01) ==
LOC: SSTAY O 06:42
PROVIDERS: ATTEND Radiology Vascular & Interventional Radiology
DX: R18.8 Other ascites (principal); K74.60 Unspecified cirrhosis of liver; Q44.7 Other congenital malformations of liver; G89.4 Chronic pain syndrome; K21.9 Gastro-esophageal reflux disease without esophagitis; Z87.440 Personal history of urinary (tract) infections; E03.9 Hypothyroidism, unspecified; F41.9 Anxiety disorder, unspecified; Z90.49 Acquired absence of other specified parts of digestive tract; Z98.890 Other specified postprocedural states; Z79.899 Other long term (current) drug therapy; Z88.6 Allergy status to analgesic agent; Z88.8 Allergy status to other drugs, medicaments and biological substances; Z82.49 Family history of ischemic heart disease and other diseases of the circulatory system
CPT/HCPCS: 49083; J3490; J7030; P9047; Q9967; A6258

== ENCOUNTER 2021-11-09 08:00 | Day surgery (SDC) | payer MEDICAID ==
[~2021-11-09] VITALS: Ht 162.6 cm; Wt 49.9 kg
[~2021-11-09 08:00] MED LIST changes: -HYDR4TAB45 PO; -iohexol 350MG/ML 100ml bottle IV ONE
[2021-11-09 08:13] VITALS: BP 107/67
[2021-11-09] MEDS ORDERED: LIDOcaine 1% 30ml preserv. free vial SQ STA (08:27)
[2021-11-09] MEDS ORDERED: albumin 25% 100mL bottle x 1 IV PRN (08:30)
[2021-11-09 09:40] VITALS: BP 129/76
[2021-11-09 09:55] VITALS: BP 102/55
[2021-11-09 10:10] VITALS: BP 97/57
[2021-11-09 10:25] VITALS: BP 107/67
== END 2021-11-09 10:40 | disposition home or self-care (01) ==
LOC: SSTAY O 08:00
PROVIDERS: ATTEND Radiology Vascular & Interventional Radiology
DX: R18.8 Other ascites (principal); Z79.899 Other long term (current) drug therapy
CPT/HCPCS: 49083; J3490; J7030; P9047; A6258

== ENCOUNTER 2021-11-17 09:14 | Day surgery (SDC) | payer MEDICAID ==
[~2021-11-17] VITALS: Ht 162.6 cm; Wt 52.4 kg
[2021-11-17 09:35] VITALS: BP 120/64
[2021-11-17] MEDS ORDERED: albumin 25% 100mL bottle x 1 IV PRN (09:35)
[2021-11-17] MEDS ORDERED: normal saline 1000ml 1,000 ML IV SCH (10:25)
[2021-11-17 10:50] VITALS: BP 103/62
[2021-11-17] MEDS ORDERED: LIDOcaine 1% 30ml preserv. free vial SQ STA (11:02)
[2021-11-17 11:05] VITALS: BP 103/62
[2021-11-17 11:20] VITALS: BP 98/55
[2021-11-17 11:30] VITALS: BP 93/54
[2021-11-17 11:45] VITALS: BP 99/56
== END 2021-11-17 11:45 | disposition home or self-care (01) ==
LOC: SSTAY O 09:14
PROVIDERS: ATTEND Radiology Diagnostic Radiology
DX: R18.8 Other ascites (principal); K74.60 Unspecified cirrhosis of liver; Q43.3 Congenital malformations of intestinal fixation; G89.4 Chronic pain syndrome; K21.9 Gastro-esophageal reflux disease without esophagitis; E03.9 Hypothyroidism, unspecified; F41.9 Anxiety disorder, unspecified; Q44.7 Other congenital malformations of liver; Z90.49 Acquired absence of other specified parts of digestive tract; Z98.890 Other specified postprocedural states; Z79.899 Other long term (current) drug therapy
CPT/HCPCS: 49083; J3490; J7030; P9047; A6258; A6402

== ENCOUNTER 2021-12-02 08:33 | Day surgery (SDC) | payer MEDICAID ==
[~2021-12-02] VITALS: Ht 162.6 cm; Wt 51.4 kg
[2021-12-02] MEDS ORDERED: albumin 25% 100mL bottle x 1 IV PRN (08:50)
[2021-12-02] MEDS ORDERED: RIFA550T PO (08:51)
[2021-12-02] MEDS ORDERED: MIDO10TA PO (08:51)
[2021-12-02] MEDS ORDERED: SPIR50TA5 PO (09:02)
[2021-12-02 09:04] VITALS: BP 125/51
[2021-12-02] MEDS ORDERED: LIDOcaine 1% (10mg/ml) 2ml vial ONE (10:01)
--- NOTE | 2021-12-02 10:31 | NUR ---
paracentesis not performed, not enough fluid to drain per ultrasound
== END 2021-12-02 10:10 | disposition home or self-care (01) ==
LOC: SSTAY O 08:33
PROVIDERS: ATTEND Radiology Vascular & Interventional Radiology
DX: R18.8 Other ascites (principal)
CPT/HCPCS: 76705; J3490

== ENCOUNTER 2021-12-20 09:33 | Outpatient (CLI) | payer MEDICAID ==
[~2021-12-20 09:33] MED LIST changes: +MIDO10TA PO; +RIFA550T PO; -SPIR100T5 PO; +SPIR50TA5 PO
== END 2021-12-20 23:59 | disposition home or self-care (01) ==
LOC: RAD 09:33
PROVIDERS: ATTEND Internal Medicine
DX: K72.90 Hepatic failure, unspecified without coma (principal); K74.60 Unspecified cirrhosis of liver; Z90.49 Acquired absence of other specified parts of digestive tract
CPT/HCPCS: 76700; 93976; A6258

== ENCOUNTER 2022-01-03 12:41 | Outpatient (CLI) | payer MEDICAID ==
[2022-01-03 13:52] LABS: BASOPHILS % (AUTO) 0.8 % (0-1); EOSINOPHILS # (AUTO) 0.1 X10'3 (0-0.9); EOSINOPHILS % (AUTO) 1.5 % (0-6); HEMATOCRIT 34.3 % (35.0-45.0); HEMOGLOBIN 11.5 g/dl (12.0-16.0); LYMPHOCYTES # (AUTO) 1.7 X10'3 (1.1-4.8); LYMPHOCYTES % (AUTO) 42.2 % (21-51); MEAN CORPUSCULAR HEMOGLOBIN 29.6 PG (27.0-31.0); MEAN CORPUSCULAR HGB CONC 33.6 g/dL (33.0-36.5); MEAN CORPUSCULAR VOLUME 88.1 FL (78-98); MONOCYTES # (AUTO) 0.3 X10'3 (0-0.9); MONOCYTES % (AUTO) 7.9 % (2-12); NEUTROPHILS # (AUTO) 1.9 X10'3 (1.8-7.7); NEUTROPHILS % (AUTO) 47.6 % (42-75); PLATELET COUNT 170 X10'3 (140-440); RED CELL DISTRIBUTION WIDTH 15.4 % (11.5-14.5); WHITE BLOOD COUNT 4.1 X10'3 (4.5-11.0)
[2022-01-03 14:08] LABS: % IRON SATURATION 7 % (11-46); IRON 25 UG/DL (49-151); TOTAL IRON BINDING CAPACITY 358 UG/DL (259-388)
[2022-01-03 14:11] LABS: ALANINE AMINOTRANSFERASE 45 U/L (12-78); ALBUMIN 3.8 G/DL (3.4-5.0); ALBUMIN/GLOBULIN RATIO 1.2 (1.1-1.5); ALKALINE PHOSPHATASE 179 IU/L (46-116); ANION GAP 9 (8-16); ASPARTATE AMINO TRANSFERASE 55 U/L (10-37); BILIRUBIN,TOTAL 0.6 MG/DL (0.1-1.0); BLOOD UREA NITROGEN 8 MG/DL (7-18); BUN/CREATININE RATIO 15.7 (6.6-38.0); CALCIUM 9.2 MG/DL (8.5-10.1); CHLORIDE 103 MMOL/L (99-107); CREATININE 0.51 MG/DL (0.40-0.90); GLUCOSE 74 MG/DL (70-104); POTASSIUM 3.6 MMOL/L (3.5-5.1); SODIUM 135 MMOL/L (135-145); TOTAL CARBON DIOXIDE 23.3 MMOL/L (24-32); TOTAL PROTEIN 7.1 G/DL (6.4-8.2); eGFR > 90 ML/MIN
== END 2022-01-03 23:59 | disposition home or self-care (01) ==
LOC: LAB 12:41
PROVIDERS: ATTEND Family Medicine
DX: Z00.01 Encounter for general adult medical examination with abnormal findings (principal); K70.31 Alcoholic cirrhosis of liver with ascites
CPT/HCPCS: 36415; 80053; 82140; 82306; 83540; 83550; 84590; 85025; 85610

== ENCOUNTER 2022-01-14 08:28 | Day surgery (SDC) | payer MEDICAID ==
[~2022-01-14] VITALS: Ht 162.6 cm; Wt 53.5 kg
[~2022-01-14 08:28] MED LIST changes: -POTA10CA44 PO; +POTA10CA45 PO
[2022-01-14 08:38] VITALS: BP 106/60
[2022-01-14] MEDS ORDERED: LIDOcaine 1% 30ml preserv. free vial SQ STA (08:43)
[2022-01-14] MEDS ORDERED: albumin 25% 100mL bottle x 1 IV PRN (08:55)
[2022-01-14 09:30] VITALS: BP 108/66
== END 2022-01-14 09:51 | disposition home or self-care (01) ==
LOC: SSTAY O 08:28
PROVIDERS: ATTEND Radiology Vascular & Interventional Radiology
DX: R18.8 Other ascites (principal); K74.60 Unspecified cirrhosis of liver; Q43.3 Congenital malformations of intestinal fixation; G89.4 Chronic pain syndrome; K21.9 Gastro-esophageal reflux disease without esophagitis; E03.9 Hypothyroidism, unspecified; F41.9 Anxiety disorder, unspecified; Z80.49 Family history of malignant neoplasm of other genital organs; Z79.899 Other long term (current) drug therapy; Z90.49 Acquired absence of other specified parts of digestive tract; Z98.890 Other specified postprocedural states
CPT/HCPCS: 76705; A6258

== ENCOUNTER 2022-02-01 13:44 | Outpatient (CLI) | payer MEDICAID ==
[~2022-02-01 13:44] MED LIST changes: -CHOL100025 PO; -MIDO10TA PO; -POTA10CA45 PO
[2022-02-01 14:47] LABS: BASOPHILS # (AUTO) 0.1 X10'3 (0-0.2); BASOPHILS % (AUTO) 0.9 % (0-1); EOSINOPHILS # (AUTO) 0.1 X10'3 (0-0.9); EOSINOPHILS % (AUTO) 1.1 % (0-6); HEMOGLOBIN 10.7 g/dl (12.0-16.0); LYMPHOCYTES # (AUTO) 2.3 X10'3 (1.1-4.8); LYMPHOCYTES % (AUTO) 36.6 % (21-51); MEAN CORPUSCULAR HEMOGLOBIN 29.8 PG (27.0-31.0); MEAN CORPUSCULAR HGB CONC 33.6 g/dL (33.0-36.5); MEAN CORPUSCULAR VOLUME 88.7 FL (78-98); MONOCYTES # (AUTO) 0.6 X10'3 (0-0.9); MONOCYTES % (AUTO) 8.8 % (2-12); NEUTROPHILS # (AUTO) 3.3 X10'3 (1.8-7.7); NEUTROPHILS % (AUTO) 52.6 % (42-75); PLATELET COUNT 225 X10'3 (140-440); WHITE BLOOD COUNT 6.3 X10'3 (4.5-11.0)
[2022-02-01 15:03] LABS: ALANINE AMINOTRANSFERASE 39 U/L (12-78); ALBUMIN 3.9 G/DL (3.4-5.0); ALBUMIN/GLOBULIN RATIO 1.1 (1.1-1.5); ALKALINE PHOSPHATASE 165 IU/L (46-116); ANION GAP 12 (8-16); ASPARTATE AMINO TRANSFERASE 38 U/L (10-37); BILIRUBIN,TOTAL 0.6 MG/DL (0.1-1.0); BLOOD UREA NITROGEN 16 MG/DL (7-18); BUN/CREATININE RATIO 28.1 (6.6-38.0); CHLORIDE 105 MMOL/L (99-107); CREATININE 0.57 MG/DL (0.40-0.90); GLUCOSE 86 MG/DL (70-104); POTASSIUM 3.9 MMOL/L (3.5-5.1); SODIUM 137 MMOL/L (135-145); TOTAL CARBON DIOXIDE 20.3 MMOL/L (24-32); TOTAL PROTEIN 7.4 G/DL (6.4-8.2); eGFR > 90 ML/MIN
== END 2022-02-01 23:59 | disposition home or self-care (01) ==
LOC: LAB 13:44
PROVIDERS: ATTEND Family Medicine
DX: K70.31 Alcoholic cirrhosis of liver with ascites (principal)
CPT/HCPCS: 36415; 80053; 85025; 85610

== ENCOUNTER 2022-03-09 11:34 | Outpatient (CLI) | payer MEDICAID ==
[2022-03-09 12:41] LABS: BASOPHILS % (AUTO) 0.6 % (0-1); EOSINOPHILS # (AUTO) 0.1 X10'3 (0-0.9); EOSINOPHILS % (AUTO) 1.6 % (0-6); HEMATOCRIT 32.8 % (35.0-45.0); HEMOGLOBIN 10.7 g/dl (12.0-16.0); LYMPHOCYTES # (AUTO) 2.2 X10'3 (1.1-4.8); MEAN CORPUSCULAR HEMOGLOBIN 28.4 PG (27.0-31.0); MEAN CORPUSCULAR HGB CONC 32.7 g/dL (33.0-36.5); MEAN CORPUSCULAR VOLUME 86.9 FL (78-98); MONOCYTES # (AUTO) 0.4 X10'3 (0-0.9); MONOCYTES % (AUTO) 6.6 % (2-12); NEUTROPHILS # (AUTO) 2.7 X10'3 (1.8-7.7); NEUTROPHILS % (AUTO) 50.2 % (42-75); PLATELET COUNT 222 X10'3 (140-440); RED BLOOD COUNT 3.77 X10'6 (4.20-5.60); RED CELL DISTRIBUTION WIDTH 15.6 % (11.5-14.5); WHITE BLOOD COUNT 5.4 X10'3 (4.5-11.0)
[2022-03-09 12:47] LABS: ALANINE AMINOTRANSFERASE 37 U/L (12-78); ALBUMIN/GLOBULIN RATIO 1.2 (1.1-1.5); ALKALINE PHOSPHATASE 196 IU/L (46-116); ANION GAP 8 (8-16); ASPARTATE AMINO TRANSFERASE 30 U/L (10-37); BILIRUBIN,TOTAL 0.5 MG/DL (0.1-1.0); BLOOD UREA NITROGEN 16 MG/DL (7-18); BUN/CREATININE RATIO 21.9 (6.6-38.0); CALCIUM 9.6 MG/DL (8.5-10.1); CHLORIDE 104 MMOL/L (99-107); CREATININE 0.73 MG/DL (0.40-0.90); GLUCOSE 70 MG/DL (70-104); POTASSIUM 4.5 MMOL/L (3.5-5.1); SODIUM 136 MMOL/L (135-145); TOTAL CARBON DIOXIDE 23.7 MMOL/L (24-32); TOTAL PROTEIN 7.4 G/DL (6.4-8.2); eGFR > 90 ML/MIN
[2022-03-09 12:52] LABS: HCG SERUM QL NEGATIVE
== END 2022-03-09 23:59 | disposition home or self-care (01) ==
LOC: LAB 11:34
PROVIDERS: ATTEND Family Medicine
DX: K70.31 Alcoholic cirrhosis of liver with ascites (principal); N91.2 Amenorrhea, unspecified
CPT/HCPCS: 36415; 80053; 84590; 84703; 85025

== ENCOUNTER 2022-05-17 12:59 | Outpatient (CLI) | payer BC, MEDICAID ==
[~2022-05-17 12:59] MED LIST changes: +ROPIVAcaine 0.5% (5mg/ml) 30ml vial ONE; +cloNIDine hcl/PF 100mcg/ml inj ONE; +epiNEPHrine 1 mg/ml inj ONE; +vancomycin 1,000mg inj ONE
[2022-05-17 13:39] LABS: BASOPHILS % (AUTO) 0.9 % (0-1); EOSINOPHILS # (AUTO) 0.1 X10'3 (0-0.9); EOSINOPHILS % (AUTO) 1.4 % (0-6); HEMATOCRIT 30.9 % (35.0-45.0); HEMOGLOBIN 10.3 g/dl (12.0-16.0); LYMPHOCYTES # (AUTO) 2.1 X10'3 (1.1-4.8); LYMPHOCYTES % (AUTO) 39.2 % (21-51); MEAN CORPUSCULAR HEMOGLOBIN 28.2 PG (27.0-31.0); MEAN CORPUSCULAR HGB CONC 33.3 g/dL (33.0-36.5); MEAN CORPUSCULAR VOLUME 84.7 FL (78-98); MEAN PLATELET VOLUME 6.8 FL (7.4-10.4); MONOCYTES # (AUTO) 0.4 X10'3 (0-0.9); MONOCYTES % (AUTO) 7.6 % (2-12); NEUTROPHILS # (AUTO) 2.7 X10'3 (1.8-7.7); NEUTROPHILS % (AUTO) 50.9 % (42-75); PLATELET COUNT 223 X10'3 (140-440); RED BLOOD COUNT 3.65 X10'6 (4.20-5.60); RED CELL DISTRIBUTION WIDTH 16.2 % (11.5-14.5); WHITE BLOOD COUNT 5.2 X10'3 (4.5-11.0)
[2022-05-17 13:57] LABS: ALANINE AMINOTRANSFERASE 81 U/L (12-78); ALBUMIN 3.8 G/DL (3.4-5.0); ALKALINE PHOSPHATASE 269 IU/L (46-116); ANION GAP 9 (8-16); ASPARTATE AMINO TRANSFERASE 55 U/L (10-37); BILIRUBIN,TOTAL 0.4 MG/DL (0.1-1.0); BLOOD UREA NITROGEN 14 MG/DL (7-18); BUN/CREATININE RATIO 18.4 (10.0-20.0); CALCIUM 9.6 MG/DL (8.5-10.1); CHLORIDE 106 MMOL/L (99-107); CREATININE 0.76 MG/DL (0.40-0.90); GLUCOSE 87 MG/DL (70-104); SODIUM 137 MMOL/L (135-145); TOTAL CARBON DIOXIDE 21.8 MMOL/L (24-32); TOTAL PROTEIN 7.5 G/DL (6.4-8.2); eGFR 88 ML/MIN
== END 2022-05-17 23:59 | disposition home or self-care (01) ==
LOC: RAD 12:59
PROVIDERS: ATTEND Family Medicine
DX: K74.60 Unspecified cirrhosis of liver (principal); K70.9 Alcoholic liver disease, unspecified; N28.89 Other specified disorders of kidney and ureter; G56.03 Carpal tunnel syndrome, bilateral upper limbs; M79.641 Pain in right hand; M79.642 Pain in left hand
CPT/HCPCS: 36415; 73130; 76700; 80053; 85025; J0171; J0735; J2795; J3370

== ENCOUNTER 2022-10-31 05:36 | Day surgery (SDC) | payer MEDICAID ==
[2022-10-26 10:47] LABS: BASOPHILS % (AUTO) 0.7 % (0-1); EOSINOPHILS # (AUTO) 0.4 X10'3 (0-0.9); EOSINOPHILS % (AUTO) 6.6 % (0-6); LYMPHOCYTES # (AUTO) 2.1 X10'3 (1.1-4.8); MEAN CORPUSCULAR HEMOGLOBIN 23.7 PG (27.0-31.0); MEAN CORPUSCULAR HGB CONC 31.6 g/dL (33.0-36.5); MEAN CORPUSCULAR VOLUME 75.1 FL (78-98); MONOCYTES # (AUTO) 0.5 X10'3 (0-0.9); MONOCYTES % (AUTO) 8.5 % (2-12); NEUTROPHILS # (AUTO) 2.6 X10'3 (1.8-7.7); NEUTROPHILS % (AUTO) 47.2 % (42-75); PRE OP HEMATOCRIT 36.2 % (35.0-45.0); PRE OP HEMOGLOBIN 11.4 g/dL (12.0-16.0); PRE OP PLATELET COUNT 251 X10'3 (140-440); PRE OP WHITE BLOOD COUNT 5.6 10'3 (4.8-10.8); RED BLOOD COUNT 4.82 X10'6 (4.20-5.60)
[2022-10-26 11:01] LABS: ALBUMIN 3.8 G/DL (3.4-5.0); ALKALINE PHOSPHATASE 243 IU/L (46-116); BLOOD UREA NITROGEN 14 MG/DL (7-18); CALCIUM 9.8 MG/DL (8.5-10.1); CHLORIDE 104 MMOL/L (99-107); PRE OP ALT 43 U/L (30-65); PRE OP ANION GAP 10 (8-16); PRE OP AST 26 U/L (10-37); PRE OP BILIRUB, TOTAL 0.4 MG/DL (0.0-1.0); PRE OP GLUCOSE 92 MG/DL (70-104); PRE OP POTASSIUM 4.3 MMOL/L (3.4-5.1); PRE OP SODIUM 136 MMOL/L (135-145); TOTAL CARBON DIOXIDE 21.7 MMOL/L (24-32); TOTAL PROTEIN 7.5 G/DL (6.4-8.2); eGFR > 90 ML/MIN
[2022-10-26 12:46] LABS: PLATELET ESTIMATE NORMAL
[2022-10-26 12:50] LABS: ELLIPTOCYTES 1+
[2022-10-26 12:51] LABS: ANISOCYTOSIS 3+; MICROCYTOSIS 1+; POIKILOCYTOSIS FEW
[2022-10-31] VITALS (10 sets, daily range): BP systolic 79–107; BP diastolic 37–66; PULSE 60–90; RESP 10–16; TEMP 98.7–98.9; O2SAT 90–100
[~2022-10-31] VITALS: Ht 162.6 cm; Wt 68.0 kg
[~2022-10-31 05:36] MED LIST changes: -ALPR0.5T9 PO; -DEXL60CA3 PO; -LACT10SO3 PO; -MORP-92; -ONDA4TAB12; -ROPIVAcaine 0.5% (5mg/ml) 30ml vial ONE; +SPIR100T PO; -SPIR50TA5 PO; +cefazolin 2gm/D5W 100mL 100 ML IV ONE; -cloNIDine hcl/PF 100mcg/ml inj ONE; -epiNEPHrine 1 mg/ml inj ONE; +famotidine 20mg tablet PO ONE; +ringers solution, lacted 1,000 ML IV SCH; -vancomycin 1,000mg inj ONE
[2022-10-31] MEDS ORDERED: BUPIVAcaine/PF 2.5mg/ml (0.25%) 10ml vial ONE (06:32)
[2022-10-31] MEDS ORDERED: LIDOcaine 0.5% (5mg/ml) 50ml vial ONE ×2 (07:48→08:20)
[2022-10-31] MEDS ORDERED: morphine 4 MG/ML inj SYRINge IV PRN (07:55)
[2022-10-31] MEDS ORDERED: proCHLORperazine 10 MG/2 ml inj IV PRN (07:55)
[2022-10-31] MEDS ORDERED: meperidine/PF 25mg/ml syringe IV PRN ×3 (07:55)
[2022-10-31] MEDS ORDERED: morphine 2 MG/ML inj. syringe IV PRN (07:55)
[2022-10-31] MEDS ORDERED: acetaminophen 1,000mg/100ml IV 100 ML IV PRN (07:55)
[2022-10-31] MEDS ORDERED: labetalol 20mg/4ml (5mg/ml) syringe IV PRN (07:55)
[2022-10-31] MEDS ORDERED: ringers solution, lacted 1,000 ML IV SCH (07:55)
[2022-10-31] MEDS ORDERED: hydrALAZINE 20mg/ml inj. IV PRN (07:55)
[2022-10-31] MEDS ORDERED: ondansetron/PF 4mg/2ml inj IV PRN (07:55)
[2022-10-31] MEDS ORDERED: midazolam 1 mg/ML 2ml injection ONE (08:08)
[2022-10-31] MEDS ORDERED: propofol inj 20 ML IV ONE (08:20)
[2022-10-31] MEDS ORDERED: morphine 10mg/ml inj. ONE (08:20)
--- NOTE | 2022-10-31 08:33 | NUR ---
Received from OR via [facility], accompanied by Anesthesiologist DR. OSBORNE and report given by Anesthesiolgist. PATIENT AWAKE AND CONVERSING. VSS. DENIES PAIN. ICE APPLIED TO RIGHT WRIST, DRESSING CDI. ABLE TO WIGGLE FINGERS. LEFT WRIST 20G PIV INFUSING FLUIDS.
--- NOTE | 2022-10-31 09:53 | NUR ---
PATIENT MEETS DISCHARGE CRITERIA FROM RECOVERY ROOM. DISCHARGE INSTRUCTIONS REVIEWED WITH PATIENT'S MOTHER AND FRANCA Pereira. RIGHT WRIST DRESSING CDI. PIV REMOVED WITHOUT COMPLICATIONS. ICE SENT HOME WITH PATIENT ALONG WITH ALL BELONGINGS. TRANSPORTED VIA WHEELCHAIR TO PRIVATE VEHICLE.
== END 2022-10-31 09:53 | disposition home or self-care (01) ==
LOC: PAS 05:36
PROVIDERS: ATTEND Orthopaedic Surgery Hand Surgery
DX: G56.01 Carpal tunnel syndrome, right upper limb (principal); K74.60 Unspecified cirrhosis of liver; K21.9 Gastro-esophageal reflux disease without esophagitis; D64.9 Anemia, unspecified; F17.210 Nicotine dependence, cigarettes, uncomplicated; Z98.890 Other specified postprocedural states; Z98.84 Bariatric surgery status; Z88.5 Allergy status to narcotic agent; Z88.8 Allergy status to other drugs, medicaments and biological substances; Z79.899 Other long term (current) drug therapy; Z87.440 Personal history of urinary (tract) infections; Z87.442 Personal history of urinary calculi; Z72.89 Other problems related to lifestyle; Z85.830 Personal history of malignant neoplasm of bone; Z82.49 Family history of ischemic heart disease and other diseases of the circulatory system
CPT/HCPCS: 29848; 36415; 80053; 82948; 85025; J0690; J2250; J2274; J2704; J3490; J7030; J7120; Z7506; Z7512; 85008; A4215; A4615; A7000

== ENCOUNTER 2024-04-29 13:40 | Outpatient (CLI) | payer BC, MEDICAID ==
[~2024-04-29 13:40] MED LIST changes: -cefazolin 2gm/D5W 100mL 100 ML IV ONE; -famotidine 20mg tablet PO ONE; -ringers solution, lacted 1,000 ML IV SCH
== END 2024-04-29 23:59 | disposition home or self-care (01) ==
LOC: RAD 13:40
PROVIDERS: ATTEND Registered Nurse
DX: S09.90XA Unspecified injury of head, initial encounter (principal); Z91.81 History of falling; X58.XXXA Exposure to other specified factors, initial encounter; Y93.89 Activity, other specified; Y92.89 Other specified places as the place of occurrence of the external cause; Y99.8 Other external cause status
CPT/HCPCS: 70450